=== PATIENT | male | born 1990 | race African-American/Black ===

== ENCOUNTER → 2024-07-07 | Outpatient (CLI) | payer OTHER ==
--- NOTE | 2024-07-07 09:22 | XR ---
EXAMINATION TYPE: XR chest 2V DATE OF EXAM: 07/07/2024 9:19 AM COMPARISON: None. CLINICAL INDICATION: Male, 33 years old with history of R05.9 COUGH, TECHNIQUE: Frontal and lateral views of the chest are obtained. FINDINGS: There is no focal air space opacity, pleural effusion, or pneumothorax seen. The cardiac silhouette size is within normal limits. The osseous structures are intact. IMPRESSION: No acute pulmonary infiltrate. [facility], , 07/07/2024 9:20 AM
== END ==
LOC: CPPFTMAIN 09:06
PROVIDERS: ATTEND Family Medicine
DX: R05.9 Cough, unspecified (principal)
CPT/HCPCS: 71046; 94060; 94726; 94729